=== PATIENT | male | born 1960 | race African-American/Black ===

== ENCOUNTER → 2020-07-30 | Outpatient (CLI) | payer OTHER ==
[~2020-07-30] MED LIST: GADOBENATE DIMEGLUMINE 1 ML IV ONE
== END ==
LOC: MRI 13:58
PROVIDERS: ATTEND Orthopaedic Surgery
DX: M65.841 Other synovitis and tenosynovitis, right hand (principal)
CPT/HCPCS: 73220; A9577

== ENCOUNTER → 2021-01-27 | Outpatient (CLI) | payer OTHER ==
[~2021-01-27] MED LIST changes: +COVID-19 VACC, MRNA(MODERNA)/PF 100 MCG/0.5 ML VIAL IM ONE; -GADOBENATE DIMEGLUMINE 1 ML IV ONE
== END ==
LOC: VACCPMC 09:15
DX: Z23 Encounter for immunization (principal); Z20.822 Contact with and (suspected) exposure to COVID-19
CPT/HCPCS: 91301